=== PATIENT | male | born 1995 | race Caucasian/White ===

== ENCOUNTER 2019-05-13 05:16 | Inpatient (IN) | payer MEDICAID ==
[2019-05-13] MEDS: ONDANSETRON 4 MG INJ IV ×2 (07:03→10:01)
[2019-05-13] MEDS: SOD CHLORIDE 0.9% 1,000 ML IV (07:03)
[2019-05-13] MEDS: morphine 4 MG/ML VIAL IV (07:03)
[2019-05-13 07:12] LABS: ADD MAN DIFF? NO
[2019-05-13 07:13] LABS: BASOPHIL # 0.1 10^3/ul (0.0-0.1); BASOPHILS % 0.3 % (0.0-2.0); HEMATOCRIT 46.3 % (42.0-52.0); HEMOGLOBIN 15.8 g/dl (14.0-18.0); LYMPHOCYTES # 0.7 10^3/ul (0.8-2.9); LYMPHOCYTES % 4.1 % (15.0-51.0); MEAN CORPUSCULAR HEMOGLOBIN 30.7 pg (29.0-33.0); MEAN CORPUSCULAR HGB CONC 34.1 g/dl (32.0-37.0); MEAN CORPUSCULAR VOLUME 89.9 fl (82.0-101.0); MEAN PLATELET VOLUME 10.3 fl (7.4-10.4); MONOCYTE # 0.9 10^3/ul (0.3-0.9); MONOCYTES % 4.7 % (0.0-11.0); NEUTROPHIL # 16.3 10^3/ul (1.6-7.5); NEUTROPHILS % 90.3 % (39.0-77.0); PLATELET COUNT 215 10^3/UL (140-415); RED BLOOD COUNT 5.15 10^6/ul (4.70-6.10); RED CELL DISTRIBUTION WIDTH 11.9 % (11.5-14.5)
[2019-05-13 07:26] LABS: ADD UMIC YES; UR AMORPHOUS CRYSTAL FEW /HPF (NONE SEEN); UR ASCORBIC ACID NEGATIVE (NEGATIVE); UR BACTERIA FEW /HPF (NONE SEEN); UR BILIRUBIN (Dip) NEGATIVE (NEGATIVE); UR BLOOD (Dip) NEGATIVE (NEGATIVE); UR CLARITY CLOUDY (CLEAR); UR COLOR YELLOW (YELLOW); UR GLUCOSE (Dip) NEGATIVE (NEGATIVE); UR KETONES (Dip) 1+ mg/dL (NEGATIVE); UR LEUKOCYTE ESTERASE (Dip) NEGATIVE Leu/ul (NEGATIVE); UR MUCUS FEW /HPF (NONE SEEN); UR NITRITE (Dip) NEGATIVE (NEGATIVE); UR RBC 2 /HPF (0-5); UR SPECIFIC GRAVITY (Dip) 1.026 (1.003-1.030); UR TOTAL PROTEIN (Dip) NEGATIVE (NEGATIVE); UR UROBILINOGEN (Dip) 1+ mg/dL (NEGATIVE); UR WBC 5 /HPF (0-5)
[2019-05-13 07:32] LABS: INR 0.98; PARTIAL THROMBOPLASTIN TIME 24.8 Sec (23.0-35.0); PROTIME 13.1 Sec (11.9-14.9)
[2019-05-13 07:44] LABS: ALANINE AMINOTRANSFERASE 25 IU/L (13-69); ALBUMIN 4.9 g/dl (3.3-4.9); ALBUMIN/GLOBULIN RATIO 1.28; ALKALINE PHOSPHATASE 118 IU/L (42-121); ANION GAP 12 (5-13); ASPARTATE AMINO TRANSFERASE 33 IU/L (15-46); BILIRUBIN,INDIRECT 2.1 mg/dl (0-1.1); BILIRUBIN,TOTAL 2.1 mg/dl (0.2-1.3); BLOOD UREA NITROGEN 18 mg/dl (7-20); CALCIUM 9.8 mg/dl (8.4-10.2); CARBON DIOXIDE 25 mmol/L (21-31); CHLORIDE 104 mmol/L (97-110); CREATININE 0.89 mg/dl (0.61-1.24); Estimated GFR > 60 mL/min (>60); GLUCOSE 134 mg/dl (70-220); LIPASE 37 U/L (23-300); POTASSIUM 3.8 mmol/L (3.5-5.1); SODIUM 141 mmol/L (135-144); TOTAL PROTEIN 8.7 g/dl (6.1-8.1)
[2019-05-13] MEDS ORDERED: ACETAMINOPHEN 325 MG TAB PO ×2 (08:30→09:30)
[2019-05-13] MEDS: PIPER-TAZO 3.375 GM IV (PMX) 100 ML IVPB ×3 (08:37→21:04)
[2019-05-13] MEDS ORDERED: ONDANSETRON 4 MG TAB PO (09:30)
[2019-05-13] MEDS ORDERED: ZOLPIDEM 5 MG TAB PO (09:30)
[2019-05-13] MEDS ORDERED: DOCUSATE SODIUM 100 MG CAP PO (09:30)
[2019-05-13] MEDS: HYDROCODONE/APAP (5/325) TAB PO ×2 (10:02→20:41)
[2019-05-13] MEDS: IOHEXOL 300MG/ML 150 ML BTL (10:59)
[2019-05-13] MEDS: SOD CHLORIDE 0.9% 100 ML (10:59)
[2019-05-13] MEDS ORDERED: CEFAZOLIN 1 GM INJ (17:00)
[2019-05-13] MEDS ORDERED: PROPOFOL 200 MG INJ (17:00)
[2019-05-13] MEDS ORDERED: ROCURONIUM 50 MG INJ (17:00)
[2019-05-13] MEDS ORDERED: LIDOCAINE 2% (SDV) 5 ML INJ (17:00)
[2019-05-13] MEDS ORDERED: SUCCINYLCHOLINE CHLORIDE 100 MG/5 ML SYG IV (17:00)
[2019-05-13] MEDS ORDERED: NEOSTIGMINE 3 MG/3 ML SYRINGE (17:00)
[2019-05-13] MEDS ORDERED: GLYCOPYRROLATE 0.4 MG INJ (17:00)
[2019-05-13] MEDS ORDERED: FAMOTIDINE 20 MG INJ (17:01)
[2019-05-13] MEDS ORDERED: DEXAMETHASONE 4 MG/ML 5 ML INJ (17:01)
[2019-05-13] MEDS ORDERED: MIDAZOLAM 1 MG/ML 2 ML INJ (17:01)
[2019-05-13] MEDS ORDERED: ONDANSETRON 4 MG INJ (17:01)
[2019-05-13] MEDS ORDERED: FENTAnyl 50 MCG/ML VIAL ×2 (17:01→17:51)
[2019-05-13] MEDS ORDERED: ROPIVACAINE 0.5 % 30 ML VIAL (17:20)
[2019-05-13] MEDS ORDERED: LIDOCAINE 1% (MPF) 30 ML INJ (17:28)
[2019-05-13] MEDS ORDERED: BUPIVACAINE 0.5%/EPI (SDV) 30 ML INJ (17:28)
[2019-05-13] MEDS ORDERED: ONDANSETRON 4 MG INJ IV (18:00)
[2019-05-13] MEDS ORDERED: FENTAnyl 50 MCG/ML VIAL IV ×2 (18:00)
[2019-05-13] MEDS ORDERED: OXYCODONE/ACETAMINOPHEN (5/325) TAB PO ×2 (18:00)
[2019-05-13] MEDS ORDERED: HYDROmorphONE 1 MG/5 ML IV SYRINGE IV ×2 (18:00)
[2019-05-13] MEDS ORDERED: KETOROLAC 30 MG INJ (18:05)
[2019-05-13] MEDS: NACL 0.9% 3 ML SYG IV (20:40)
[2019-05-13] MEDS: FAMOTIDINE 20 MG INJ IV (20:41)
[2019-05-14] MEDS: HYDROCODONE/APAP (5/325) TAB PO (06:16)
[2019-05-14] MEDS: PIPER-TAZO 3.375 GM IV (PMX) 100 ML IVPB ×3 (06:16→22:52)
[2019-05-14 06:24] LABS: ADD MAN DIFF? NO
[2019-05-14 06:34] LABS: BASOPHILS % 0.1 % (0.0-2.0); HEMATOCRIT 43.7 % (42.0-52.0); HEMOGLOBIN 14.6 g/dl (14.0-18.0); LYMPHOCYTES # 0.9 10^3/ul (0.8-2.9); LYMPHOCYTES % 6.4 % (15.0-51.0); MEAN CORPUSCULAR HEMOGLOBIN 30.4 pg (29.0-33.0); MEAN CORPUSCULAR HGB CONC 33.4 g/dl (32.0-37.0); MEAN PLATELET VOLUME 10.9 fl (7.4-10.4); MONOCYTES % 6.6 % (0.0-11.0); NEUTROPHIL # 12.6 10^3/ul (1.6-7.5); NEUTROPHILS % 86.4 % (39.0-77.0); PLATELET COUNT 209 10^3/UL (140-415); RED CELL DISTRIBUTION WIDTH 12.2 % (11.5-14.5)
[2019-05-14 06:34] LABS: WHITE BLOOD COUNT 14.6 10^3/ul (4.8-10.8)
[2019-05-14 06:59] LABS: ALANINE AMINOTRANSFERASE 20 IU/L (13-69); ALBUMIN/GLOBULIN RATIO 1.25; ALKALINE PHOSPHATASE 79 IU/L (42-121); ANION GAP 7 (5-13); ASPARTATE AMINO TRANSFERASE 27 IU/L (15-46); BILIRUBIN,INDIRECT 2.1 mg/dl (0-1.1); BILIRUBIN,TOTAL 2.1 mg/dl (0.2-1.3); BLOOD UREA NITROGEN 12 mg/dl (7-20); CARBON DIOXIDE 29 mmol/L (21-31); CHLORIDE 102 mmol/L (97-110); CREATININE 0.81 mg/dl (0.61-1.24); Estimated GFR > 60 mL/min (>60); GLUCOSE 125 mg/dl (70-220); SODIUM 138 mmol/L (135-144); TOTAL PROTEIN 7.2 g/dl (6.1-8.1)
[2019-05-14] MEDS: FAMOTIDINE 20 MG INJ IV (08:24)
[2019-05-14] MEDS: FAMOTIDINE 20 MG TAB PO (22:51)
[2019-05-15] MEDS: PIPER-TAZO 3.375 GM IV (PMX) 100 ML IVPB (06:36)
[2019-05-15] MEDS: FAMOTIDINE 20 MG TAB PO (09:00)
[2019-05-15 10:33] LABS: ADD MAN DIFF? NO
[2019-05-15 10:37] LABS: WHITE BLOOD COUNT 6.7 10^3/ul (4.8-10.8)
[2019-05-15 10:37] LABS: BASOPHILS % 0.5 % (0.0-2.0); EOSINOPHILS % 0.6 % (0.0-7.0); HEMATOCRIT 40.4 % (42.0-52.0); HEMOGLOBIN 13.2 g/dl (14.0-18.0); LYMPHOCYTES # 1.5 10^3/ul (0.8-2.9); MEAN CORPUSCULAR HEMOGLOBIN 30.4 pg (29.0-33.0); MEAN CORPUSCULAR HGB CONC 32.7 g/dl (32.0-37.0); MEAN CORPUSCULAR VOLUME 93.1 fl (82.0-101.0); MEAN PLATELET VOLUME 10.2 fl (7.4-10.4); MONOCYTE # 0.5 10^3/ul (0.3-0.9); MONOCYTES % 7.5 % (0.0-11.0); NEUTROPHIL # 4.5 10^3/ul (1.6-7.5); NEUTROPHILS % 68.1 % (39.0-77.0); PLATELET COUNT 188 10^3/UL (140-415); RED BLOOD COUNT 4.34 10^6/ul (4.70-6.10); RED CELL DISTRIBUTION WIDTH 12.3 % (11.5-14.5)
[2019-05-15 10:59] LABS: ANION GAP 8 (5-13); BLOOD UREA NITROGEN 14 mg/dl (7-20); CALCIUM 8.8 mg/dl (8.4-10.2); CARBON DIOXIDE 29 mmol/L (21-31); CHLORIDE 102 mmol/L (97-110); CREATININE 0.95 mg/dl (0.61-1.24); Estimated GFR > 60 mL/min (>60); GLUCOSE 138 mg/dl (70-220); POTASSIUM 3.6 mmol/L (3.5-5.1); SODIUM 139 mmol/L (135-144)
== END 2019-05-15 12:11 | disposition home or self-care (01) | DRG 340 ==
LOC: FTE 05:16 → REC 08:29 → MS1 20:00
PROC: 0DTJ4ZZ Resection of Appendix, Percutaneous Endoscopic Approach (ICD-10-PCS; principal; 2019-05-13 15:30)
DX: K35.32 Acute appendicitis with perforation, localized peritonitis, and gangrene, without abscess (principal); E80.6 Other disorders of bilirubin metabolism
CPT/HCPCS: 36415; 74177; 76705; 80048; 80053; 81001; 83690; 85025; 85610; 85730; 88304; 93306; 96361; 96374; 96375; 99285-25